=== PATIENT | female | born 1960 | race Caucasian/White ===

== ENCOUNTER 2025-10-14 08:41 | Outpatient (OUT) | payer SELFPAY ==
--- OUTSIDE RECORDS SUMMARY | 2025-10-05 11:00 | XMS_ITS | Encounter Summary ---
Author Organization [facility] Address [address] [place] [address] Care Team Providers Care Mineral Mixer Name Role Phone Mirian Putnam MD Primary Care Provider [phone] Reason for Visit * Consultation (Routine) - AuthorizedSpecialtyDiagnoses / ProceduresReferred By ContactReferred To ContactPhysical Therapy Diagnoses Acute pain of both shoulders Procedures RI OFFICE/OUTPATIENT [facility] MDM 60 MINUTES Jocy Roger NP [address] [place] [address] Phone: tel: fax: Joseline Justin PT Referral IDStatusReasonStart DateExpiration DateVisits RequestedVisits [id number] Consult and Treat Encounter Details DateTypeDepartmentCare Team (Latest Contact Info)Puptchszqxp58/04/2025 11:00 AM ESTTreatment [facility] [address] [place] [address] Stephania Casarez PTA Acute pain of both shoulders (Primary Dx) Social History Tobacco UseTypesPacks/DayYears UsedDateSmoking Tobacco: NeverSmokeless Tobacco: NeverAlcohol UseStandard Drinks/WeekCommentsNot Currently2 (1 standard drink = 0.6 oz pure alcohol)Caffeine intake: 1-2 cups per day coffee, [id number] Health LiteracyAnswerDate RecordedHow often do you need to have someone help you when you read instructions, pamphlets, or other written material from your doctor or pharmacy?Never08/13/2025Humiliation, Afraid, Rape, and Kick questionnaireAnswer Date RecordedWithin the last year, have you been afraid of your partner or ex-partner?No08/13/2025Within the last year, have you been humiliated or emotionally abused in other ways by your partner or ex-partner?No08/13/2025 Within the last year, have you been kicked, hit, slapped, or otherwise physically hurt by your partner or ex-partner?No08/13/2025Within the last year, have you been raped or forced to have any kind of sexual activity by your part ner or ex-partner?No08/13/2025Social Connection and Isolation PanelAnswerDate RecordedIn a typical week, how many times do you talk on the phone with family, friends, or neighbors?More than three times a week08/13/2025How often do you get together with friends or relatives?Twice a week08/13/2025How often do you attend christianity or gnosticist services?1 to 4 times per year08/13/2025Do you belong to any clubs or organizations such as christianity groups, unions, fraternal or athletic rick ups, or school groups?No08/13/2025How often do you attend meetings of the clubs or organizations you belong to?Patient zkudhgrt52/12/2025re you , , , , never , or living with a partner? 08/13/2025UDIT-CAnswerDate RecordedQ1: How often do you have a drink containing alcohol?2-4 times a month08/13/2025Q2: How many drinks containing alcohol do you have on a typical day when you are drinking?1 or Q3: How often do you have six or more drinks on one occasion?Less than zsjkudw1308/13/2025Overall Financial Resource Strain (CARDIA)AnswerDate RecordedHow hard is it for you to pay for the very basics like food, housing, medical care, and heating?Not hard at all08/13/2025PHQ-2AnswerDate RecordedPatient Health Questionnaire-2 Score0 08/27/2025[facility] [place] [facility] Occupational Health - Occupational Stress QuestionnaireAnswerDate RecordedDo you feel stress - tense, restless, nervous, or anxious, or unable to sleep at night because yourmind is troubled all the time - these days?Not at all08/13/2025Exercise Vital SignAnswerDate RecordedOn average, how many days per week do you engage in moderate to strenuous exercise (like a brisk walk)?2 days08/13/2025On average, how many minutes do you engage in exercise at this level?20 min08/13/2025Hunger Vital SignAnswerDate Recorded Within the past 12 months, you worried that your food would run out before you got the money to buymore.Never true08/13/2025Within the past 12 months, the food you bought just didn't last and you didn't have money to get more.Never true 08/13/2025PRAPARE - TransportationAnswerDate RecordedIn the past 12 months, has lack of transportation kept you from medical appointments or from getting medications?No08/13/2025In the past 12 months, has lack of transportation kept you from meetings, work, or from getting things needed for daily living?No 08/13/2025Housing Stability Vital SignAnswerDate RecordedIn the last 12 months, was there a time when you were not able to pay the mortgage or rent on time?No 08/13/2025In the past 12 months, how many times have you moved where you were living?t any time in the past 12 months, were you homeless or living in a custodial (including now)?No08/13/2025CommentsUnknownSex and Gender InformationValueDate RecordedSex Assigned at BirthNot on fileLegal SexFemale 02/13/2023 6:46 PM EDTGender IdentityNot on fileSexual OrientationNot on file documented as of this encounter Progress Notes * Stephania Casarez, EMPLOYMENT TRAINER - 10/05/2025 11:00 AM EST Images from the original note were not included. Physical Therapy Treatment Visit Patient Name: Leslye Majano Today's Date: 10/05/2025 Encounter Diagnoses Name Primary? Acute pain of both shoulders Yes Visit number: 13 Timed Code Treatment: 45 minutes Total Treatment Time: 60 minutes Time In: 1100 AM Time Out: 1200 PM History: Pt states a couple weeks ago she realized she could not lift either arm. States she was lifting some garage doors at that time which were heavy. States both arms were only raising to about 90 degrees. States she was seen by chiro for neck adjustments with no change in shoulder sx's. Precautions: [place] Subjective: Pt reports shoulder is getting better, but numbness remains in R hand. States continuesto be sore after each session d/t pushing herself. States was able to get a hold of ortho and doesn't see them till October 21. Pain: 01/11 Objective: PT Evaluation (08/11/2025) RIGHT SHOULDER AROM: 146 degrees flexion, 85 degrees abduction, full ER and IR Strength: grossly 4 to 4+/5 without pain with MMT in neutral; empty can 4-/5 due to pain Palpation: min to moderate tenderness biceps tendon and RC insertion Muscle length: rightness right UT Special Test: Pain with Neers at 80 degrees elevation, pain with Rubio Robinson; empty can negative, mild discomfort Speeds testing LEFT SHOULDER AROM: 136 degrees flexion, 80 degrees abduction, full ER and IR with pain at end range IR Strength: grossly 4 to 4+/5 without pain with MMT in neutral; empty can 3 to 3+/5 due to pain Palpation: moderate tenderness biceps tendon and RC insertions Special Test: Pain with Neers at 30 degrees elevation, positive Rubio Robinson; moderate pain withSpeeds testing Treatment: Manual Therapy: () Delivered manual ther to bilateral STM/MFR/TPR, stretching of upper traps, cervical distraction SOR to reduce tone and improve mobility PROM of bilateral shoulders Therapeutic Exercise: (45 minutes supervised) Guided pt through ther and flex ex per grid to improve bilateral shoulder UE functional mobility, strength and scapular stability within pain free ranges; Therapeutic Activity: Exercises to improve dynamic activities, functional tasks, functional mobility to return to prior activity level as needed. Neuromuscular re-education: Balance Training, Muscle Facilitation, Dynamic Stability, Core Stabilization, and Blood Flow Restriction Training (BFRT) as needed. Modalities: (15 minutes ) Post session HP / Premod to bilateral shoulder, pt seated to reduce muscle soreness Assessment: Visit #13: Patient presents with bilateral shoulder pain and weakness. MRI revealed a tear of the left rotator cuff muscle and tendonitis in the right shoulder. The session focused on strengthening and improving mobility of both shoulders within pain-free ranges. No adverse effects wereobserved during this visit. The session concluded with interferential current therapy. Outcome Measure: Upper Extremity Functional Index (UEFI): 61/80; 55/80 (09/13/25) Rehab Diagnosis: bilateral shoulder pain and weakness, decrease ROM and mobility Short Term Goal: To be met in 2 weeks Goal 1: Pt to be instructed in home exercise program. - Met Director [employer] Goals: To be met in 10 weeks Goal 1: Pt to report independence and compliance with home program. - Met/progressing Goal 2: Pt to achieve 120 degrees of bilateral shoulder abduction to assist with grooming hair. - Progressing Goal 3: Pt to achieve 4+ to 5/5 strength right shoulder in all planes to assist with functional tasks and lifting. - Progressing Goal 4: Pt to present with negative impingement signs bilateral shoulders indicating improved tissue quality and decrease pain. - - Progressing Goal 5: Pt to achieve 140 degrees of left shoulder flexion to assist with overhead reaching. - Progressing Goal 6: Pt to achieve 4+/5 strength left shoulder in all planes to assist with functional tasks andlifting. - Progressing Goal 7: Pt to score no less than 70/80 on UEFI indicating improved QOL. - Progressing Pt will benefit from skilled PT for 2x/week from 08/11/2025 to 11/03/2025 to address the above impairments. I hereby deem this POC medically necessary. Please sign below. Date: Cosigned by Joseline Justin PT at 10/08/2025 2:36 PM EST documented in this encounter Plan of Treatment DateTypeDepartmentCare Team (Latest Contact Info)Tsfswyaojtf33/14/2025 12:30 PM ESTTreatment [facility] [address] [place] [address] Gezo Stephania, EMPLOYMENT TRAINER 10/19/2025 11:00 AM ESTTreatment [facility] [address] [place] [address] Gezo, Stephania, EMPLOYMENT TRAINER 10/21/2025 11:00 AM ESTTreatment [facility] [address] [place] [address] Gezo Stephania, EMPLOYMENT TRAINER 11/30/2025 1:00 PM ESTOffice Visit [facility] [address] [place] [address] Jocy Roger NP [address] [place] [address] documented as of this encounter Visit Diagnoses Diagnosis Acute pain of both shoulders- Primary documented in this encounter Additional Health Concerns AssessmentNoted TimePHQ-9 Depression Total Score: 10:00 AM EDT documented as of this encounter Care Teams Team MemberRelationshipSpecialtyStart DateEnd Date Mirian Putnam MD [address] [place] [address] PCP - GeneralFamily Medicine04/09/23documented as of this encounter
--- OUTSIDE RECORDS SUMMARY | 2025-10-07 11:00 | XMS_ITS | Encounter Summary ---
Author Organization [facility] Address [address] [place] [address] Care Team Providers Care Community Health Director Name Role Phone Mirian Putnam MD Primary Care Provider [phone] Reason for Visit * Consultation (Routine) - AuthorizedSpecialtyDiagnoses / ProceduresReferred By ContactReferred To ContactPhysical Therapy Diagnoses Acute pain of both shoulders Procedures RI OFFICE/OUTPATIENT [facility] MDM 60 MINUTES Jocy Roger NP [address] [place] [address] Phone: tel: fax: Joseline Justin PT Referral IDStatusReasonStart DateExpiration DateVisits RequestedVisits [id number] Consult and Treat Encounter Details DateTypeDepartmentCare Team (Latest Contact Info)Yuxghhjsnjs39/06/2025 11:00 AM ESTTreatment [facility] [address] [place] [address] Stephania Casarez PTA Acute pain of both shoulders (Primary Dx) Social History Tobacco UseTypesPacks/DayYears UsedDateSmoking Tobacco: NeverSmokeless Tobacco: NeverAlcohol UseStandard Drinks/WeekCommentsNot Currently2 (1 standard drink = 0.6 oz pure alcohol)Caffeine intake: 1-2 cups per day coffee, [id number] Health LiteracyAnswerDate RecordedHow often do you need [...] relatives?Twice a week08/13/2025How often do you attend jewish or jain services?1 to 4 times per year08/13/2025Do you belong to any clubs or organizations such as jewish groups, unions, fraternal or athletic rick ups, or school groups?No08/13/2025How often do you attend meetings of the clubs or organizations you belong to?Patient muyldnvs46/12/2025re you , , , , never , or living with a partner? 08/13/2025UDIT-CAnswerDate RecordedQ1: How often do you have a drink containing alcohol?2-4 times a month08/13/2025Q2: How many drinks containing alcohol do you have on a typical day when you are drinking?1 or Q3: How often do you have six or more drinks on one occasion?Less than potbbde7608/13/2025Overall Financial Resource Strain (CARDIA)AnswerDate RecordedHow hard is it for you to pay for the very basics like food, housing, medical care, and heating?Not hard at all08/13/2025PHQ-2AnswerDate RecordedPatient Health Questionnaire-2 Score0 08/27/2025[facility] [place] of Occupational Health - Occupational Stress QuestionnaireAnswerDate [...] were you homeless or living in a retirement (including now)?No08/13/2025CommentsUnknownSex and Gender InformationValueDate RecordedSex Assigned at BirthNot on fileLegal SexFemale 02/13/2023 6:46 PM EDTGender IdentityNot on fileSexual OrientationNot on file documented as of this encounter Progress Notes * Stephania Casarez, DIGITAL HARDWARE DESIGN ENGINEER - 10/07/2025 11:00 AM EST Images from the original note were not included. Physical Therapy Treatment Visit Patient Name: Leslye Majano Today's Date: 10/07/2025 Encounter Diagnoses Name Primary? Acute pain of both shoulders Yes Visit number: 14 Timed Code Treatment: 45 minutes Total Treatment [...] with no change in shoulder sx's. Precautions: [place] Subjective: Pt reports no new changes since last session. continues to work on exercises at home until her appt the 21 of October. Pain: 01/11 Objective: PT Evaluation (08/11/2025) RIGHT [...] moderate pain withSpeeds testing Treatment: Manual Therapy: Delivered manual ther to bilateral STM/MFR/TPR, stretching of upper traps, cervicaldistraction SOR to reduce tone and improve mobility [...] seated to reduce muscle soreness Assessment: Visit #14: Patient presents with bilateral shoulder pain and weakness. MRI revealed a tear of the left rotator cuff muscle and tendonitis in the right shoulder. Continued focus on strength and active ROM to improve with functional activity. Min difficulty with ABD, due to weakness and pain. Pt would benefit from additional therapy to help gain improvements in strength and functional mobility. Outcome Measure: Upper Extremity Functional Index (UEFI): 61/80; 55/80 (09/13/25) Rehab Diagnosis: bilateral shoulder pain and weakness, decrease ROM and mobility Short Term Goal: To be met in 2 weeks Goal 1: Pt to be instructed in home exercise program. - Met Manager Of Data Goals: To be met in 10 weeks [...] Cosigned by Joseline Justin PT at 10/08/2025 2:27 PM EST documented in this encounter Plan of Treatment DateTypeDepartmentCare Team (Latest Contact Info)Vsxkkqalwur32/14/2025 12:30 PM ESTTreatment [facility] [address] [place] [address] Stephania Casarez, DIGITAL HARDWARE DESIGN ENGINEER 10/19/2025 11:00 AM ESTTreatment [facility] [address] [place] [address] GeStephania brice, DIGITAL HARDWARE DESIGN ENGINEER 10/21/2025 11:00 AM ESTTreatment [facility] [address] [place] [address] HenriqueStephania brice, DIGITAL HARDWARE DESIGN ENGINEER 11/30/2025 1:00 PM ESTOffice Visit [facility] [address] [facility] [place] [address] Jocy Roger NP [address] [place] [address] documented as of this encounter Visit Diagnoses Diagnosis Acute pain of both shoulders- Primary documented in this encounter Additional Health Concerns AssessmentNoted TimePHQ-9 Depression Total Score: 10:00 AM EDT documented as of this encounter Care Teams Team MemberRelationshipSpecialtyStart DateEnd Date Mirian Putnam MD [address] [facility] [place] [address] PCP - GeneralFamily Medicine04/09/23documented as of this encounter
--- NOTE | 2025-10-14 | XR_ITS ---
The [address] [address] Patient Name: MARVIN ISRAEL MRN: [id number] date: 1960 Sex: F Assigned Patient Location: [facility] Current Patient Location: [facility] Accession/Order Number: [id number] Exam Date: 10/14/2025 10:55 Report Date: 10/14/2025 11:16 At the request of: DARIANA JAVIER DO Procedure: XR shoulder ARTURO min 2V BILATERAL SHOULDERS - 4 views each COMPARISON: None CLINICAL DATA: Bilateral shoulder pain for the past couple months with decreased range of motion on the left and numbness at the hand on the right. No injury. AP, Y, axillary and Grashey views were obtained. There are no acute fractures or dislocation. Mild hypertrophy is noted at both acromioclavicular joints. There is also asymmetric spurring along the undersurface of the acromion on the left which could predispose to impingement. No significant soft tissue abnormalities are seen. XR/XR shoulder ARTURO min 2V IMPRESSION: DEGENERATIVE CHANGES, DESCRIBED. Impression dictated by: Agustina Deutsch M.D. 10/14/2025 11:16 AM Dictation Location: [place] [address] Electronically authenticated by: [id number] Y Date: 10/14/2025 11:16
--- OUTSIDE RECORDS SUMMARY | 2025-10-14 08:43 | XMS_ITS | Clinical Summary ---
Author Organization [facility] Healthcare Address [address] [place] [address] Care Team Providers Care Voice Engineer Name Role Phone Mirian Putnam MD Primary Care Provider [phone] Allergies Active AllergyReactionsCriticalityNoted DateCommentsPenicillin GUnknown 07/11/2023 Medications MedicationSigDispense QuantityRefillsLast FilledStart DateEnd DateStatus Coenzyme Q10 (COQ-10 PO) CoQ-10Active ibuprofen 200 MG tablet Take 200 mg by mouth every 6 (six) hours.Active omega-3 (fish oil) 1000 MG capsule Take by mouth.Active magnesium 30 MG tablet Take 30 mg by mouth in the morning and 30 mg before bedtime.Active albuterol HFA 90 mcg/act inhaler Indications:Walking pneumoniaInhale 2 puffs every 4 (four) hours if needed for wheezing 18 g 4Active valsartan (Diovan) 320 MG tablet Indications:Essential (primary) hypertensionTAKE 1 TABLET BY MOUTH EVERY DAY 90 tablet 5Active carvedilol CR (Coreg CR) 40 MG 24 hr capsule Indications:Primary hypertensionTAKE 1 CAPSULE BY MOUTH EVERY DAY IN THE MORNING 90 capsule 5Active cyclobenzaprine (Flexeril) 10 MG tablet Indications:Acute pain of both shouldersTake 1 tablet (10 mg) by mouth 3 (three) times a day as needed for muscle spasms for up to 5 days 15 tablet 5Active empagliflozin (Jardiance) 10 MG Indications:Type 2 diabetes mellitus with other specified complication, without long-term current use of insulin (HCC)Take 1 tablet (10 mg) by mouth Daily 90 tablet 5Active amLODIPine (Norvasc) 5 MG tablet Indications:Primary hypertensionTake 1 tablet (5 mg) by mouth Daily 90 tablet 5Active buPROPion XL (Wellbutrin XL) 150 MG 24 hr tablet Indications:Essential hypertensionTAKE 1 TABLET (150 MG) BY MOUTH IN THE MORNING. DO NOT CRUSH, CHEW, OR SPLIT.. 90 tablet 5Active Active Problems ProblemNoted DateDiagnosed DateEssential ecvlwnxmvrwo85/10/2023Fatty liver 07/11/2023astroesophageal reflux mikhccq2507/11/20233539Ywinsjmwdlmxwr61/10/2023 Parathyroid uhanwpkcbgy36/10/2023 Resolved Problems ProblemNoted DateDiagnosed DateResolved XgcjKwkwhqdqcd54/10/202308/Loss of sense of smellSerum calcium nprygksa63 Encounters DateTypeDepartmentCare QheiHclaohmasfy40/06/2025 11:00 AM ESTTreatment [facility] [address] [facility] [address] [place] [address] Stephania Casarez, VIBRATOR EQUIPMENT TESTER Acute pain of both shoulders (Primary Dx)10/07/2025amboo flowsheet [facility] [address] [facility] [address] [place] [address] HenriquezoStephania, VIBRATOR EQUIPMENT TESTER 10/07/20252890Puqlen32/04/2025 11:00 AM ESTTreatment [facility] [address] [facility] [address] [place] [address] GezoStephania, VIBRATOR EQUIPMENT TESTER Acute pain of both shoulders (Primary Dx)10/05/2025amboo flowsheet [facility] [address] [facility] [address] [place] [address] GezoStephania, VIBRATOR EQUIPMENT TESTER 10/05/20255165Rvhejs02/28/2025 11:00 AM EDTTreatment [facility] [address] [facility] [address] [place] [address] Dionicio Rosario, VIBRATOR EQUIPMENT TESTER Acute pain of both shoulders (Primary Dx)09/28/2025amboo flowsheet [facility] [address] [facility] [address] [place] [address] Dionicio Rosario, VIBRATOR EQUIPMENT TESTER 09/28/20257796Ahbyub34/24/2025 10:30 AM EDTClinical Support [facility] Patient Education [address] [facility] [place] [address] Zeus Mena RN Type 2 diabetes mellitus with other specified complication, without long-term current use of insulin (HCC) (Primary Dx); Essential dbenoetgqrui26/23/2025 1:00 PM EDTTreatment [facility] [address] [facility] [address] [place] [address] Livia Bowling, VIBRATOR EQUIPMENT TESTER Acute pain of both shoulders (Primary Dx)09/23/2025amboo flowsheet [facility] [address] [facility] [address] [place] [address] Livia Bowling, VIBRATOR EQUIPMENT TESTER 09/23/20258080Cydrkm31/22/2025Telephone [facility] Medicine [address] [facility] [place] [address] Mirian Putnam MD 09/21/2025 11:00 AM EDTTreatment [facility] [address] [facility] [address] [place] [address] Joseline Justin, PT Acute pain of both shoulders (Primary Dx)09/21/2025amboo flowsheet [facility] [address] [facility] [address] [place] [address] Joseline Justin, PT 09/21/20257183Guggyr49/17/2025Results Follow-Up [facility] [address] [facility] [place] [address] Jocy Roger, MARIELA MR shoulder left wo IV ljjaecpi86/16/2025 2:15 PM EDTAncillary Procedure [facility] [address] [place] [phone] Acute pain of left eyuqerts12/16/2025 1:30 PM EDTAncillary Procedure [facility] [address] [place] [address] Acute pain of right krzpuqyr96/16/9247Litgvv87/13/2025 2:00 PM EDTTreatment [facility] [address] [place] [address] Joseline Justin, PT Acute pain of both shoulders (Primary Dx)09/13/2025amboo flowsheet [facility] [address] [place] [address] Joseline Justin, PT 09/13/20250303Btkcdi24/10/2025 2:00 PM EDTTreatment [facility] [address] [place] [address] Livia Bowling, VIBRATOR EQUIPMENT TESTER Acute pain of both shoulders (Primary Dx)09/10/2025amboo flowsheet [facility] [address] [place] [address] Livia Bowling, VIBRATOR EQUIPMENT TESTER 09/10/20250646Jmcjej10/08/2025 1:00 PM EDTTreatment [facility] [address] [place] [address] Dionicio Rosario, VIBRATOR EQUIPMENT TESTER Acute pain of both shoulders (Primary Dx)09/08/20258087Oyhary94/06/2025Telephone [facility] [address] [place] [address] Niki Roland MA 09/03/2025 12:30 PM EDTTreatment [facility] [address] [place] [address] Livia Bowling, VIBRATOR EQUIPMENT TESTER Acute pain of both shoulders (Primary Dx)09/03/20259108Umknxz38/03/2025Refill [facility] [address] [facility] [place] [address] Mirian Putnam MD Essential /29/2025 10:30 AM EDTTreatment [facility] [address] [facility] [address] [place] [address] Dionicio Rosario, VIBRATOR EQUIPMENT TESTER Acute pain of both shoulders (Primary Dx)08/30/2025amboo flowsheet [facility] [address] [facility] [address] [place] [address] Dionicio Rosario, VIBRATOR EQUIPMENT TESTER 08/30/20255186Kvjbsg00/26/2025 11:30 AM EDTOffice Visit [facility] [address] [facility] [place] [address] Jocy Roger NP Type 2 diabetes mellitus with other specified complication, without long-term current use of insulin (HCC) (Primary Dx); Primary hypertension ; Spasm of both trapezius muscles; Acute pain of both shoulders; Major depressive disorder, recurrent, mild08/27/2025amb flowsheet [facility] [address] [facility] [place] [address] Jocy Roger NP 08/27/20250302Ctduqd89/22/2025 2:30 PM EDTTreatment [facility] [address] [facility] [address] [place] [address] Livia Bowling, VIBRATOR EQUIPMENT TESTER Acute pain of both shoulders (Primary Dx)08/23/2025amboo flowsheet [facility] [address] [place] [address] Livia Bowling, VIBRATOR EQUIPMENT TESTER 08/23/20254548Bhmgru40/18/2025 2:30 PM EDTTreatment [facility] [address] [facility] [address] [place] [address] Livia Bowling, VIBRATOR EQUIPMENT TESTER Acute pain of both shoulders (Primary Dx)08/19/2025amboo flowsheet [facility] [address] [place] [address] Livia Bowling, VIBRATOR EQUIPMENT TESTER 08/19/20251622Iejhmn85/15/2025 2:30 PM EDTTreatment [facility] [address] [place] [address] Dionicio Rosario, VIBRATOR EQUIPMENT TESTER Acute pain of both shoulders (Primary Dx)08/16/2025amboo flowsheet [facility] [address] [facility] [address] [place] [address] Dionicio Rosario, VIBRATOR EQUIPMENT TESTER 08/16/20257989Tbqgev50/12/2025 10:30 AM EDTClinical Support [facility] [address] [place] [address] Zeus Mena RN Type 2 diabetes mellitus with other specified complication, without long-term current use of insulin (HCC) (Primary Dx); Mixed ubobrqddkuylvx06/12/2025amboo flowsheet [facility] Education [address] [place] [address] Zeus Mena RN 08/11/2025 1:00 PM EDTEvaluation [facility] [address] [facility] [address] [place] [address] Joseline Justin, PT Acute pain of both shoulders (Primary Dx)08/11/2025Plan of Care Documentation [facility] [address] [facility] [address] [place] [address] 08/11/2025amboo flowsheet [facility] [address] [place] [address] Joseline Justin, PT 08/11/20259023Hxiupa52/27/2025 1:30 PM EDTOffice Visit [facility] [address] [place] [address] Jocy Roger NP Acute pain of both shoulders (Primary Dx); Essential hypertension ; Spasm of both trapezius muscles; Type 2 diabetes mellitus with other specified complication, without long-term current use of insulin (HCC)07/28/2025amboo flowsheet [facility] [address] [place] [address] Jocy Roger NP 07/28/2025Travelfrom Last 3 Months Family History Medical HistoryRelationNameCommentsDiabetesFatherHeart diseaseFatherHypertension FatherCancerMotherHypertensionMotherUterine cancerMotherRelationNameStatus SemuyxqwZtunhqbGohffVqjwniboXmstiMsmjuxFwlmfAufamkXttmoFyuwwwq1Jxr 1AliveSon 2 Social History Tobacco UseTypesPacks/DayYears UsedDateSmoking Tobacco: NeverSmokeless Tobacco: Never Tobacco Cessation:Counseling Given: Not Answered Alcohol UseStandard Drinks/WeekCommentsNot Currently2 (1 standard drink = 0.6 oz pure alcohol)Caffeine intake: 1-2 cups per day coffee, hipG1434 Health Literacy AnswerDate RecordedHow often do you need to have someone help you when you read instructions, pamphlets, or other written material from your doctor or pharmacy? Never08/13/2025Humiliation, Afraid, Rape, and Kick questionnaireAnswerDate RecordedWithin the last year, have you been [...] relatives?Twice a week08/13/2025How often do you attend orthodoxy or gnosticism services?1 to 4 times per year08/13/2025Do you belong to any clubs or organizations such as orthodoxy groups, unions, fraternal or athletic rick ups, or school groups?No08/13/2025How often do you attend meetings of the clubs or organizations you belong to?Patient /12/2025re you , , , , never , or living with a partner? 08/13/2025UDIT-CAnswerDate RecordedQ1: How often do you have a drink containing alcohol?2-4 times a month08/13/2025Q2: How many drinks containing alcohol do you have on a typical day when you are drinking?1 or Q3: How often do you have six or more drinks on one occasion?Less than ozsmrkz9208/13/2025Overall Financial Resource Strain (CARDIA)AnswerDate RecordedHow hard is it for you to pay for the very basics like food, housing, medical care, and heating?Not hard at all08/13/2025PHQ-2AnswerDate RecordedPatient Health Questionnaire-2 Score0 08/27/2025Fin[facility] Occupational Health - Occupational Stress QuestionnaireAnswerDate [...] were you homeless or living in a senior living (including now)?No08/13/2025CommentsUnknownSex and Gender InformationValueDate RecordedSex Assigned at BirthNot on fileLegal SexFemale 02/13/2023 6:46 PM EDTGender IdentityNot on fileSexual OrientationNot on file Last Filed Vital Signs Vital SignReadingTime TakenCommentsBlood Mpiianqv728/9608/27/2025 11:23 AM EDT Wxbgw087108/27/2025 11:23 AM IUMSkjqxtalixl64.3 ??C (97.3 ??F)05/27/2025 9:57 AM EDTRespiratory Jfks288012/12/2023 12:00 PM ESTOxygen Bikrnsgzpj26%08/27/2025 11:23 AM EDTInhaled Oxygen Concentration--Gavufz50.8 kg (173 lb 12.8 oz)08/27/2025 11:23 AM ZYVBwmssc943.6 cm (5' 4 )05/27/2025 9:57 AM EDTBody Mass Index29.83 05/27/2025 9:57 AM EDT Plan of Treatment DateTypeDepartmentCare Team (Latest Contact Info)Ztniwnbjcoq56/14/2025 12:30 PM ESTTreatment [facility] [address] [facility] [address] [place] [address] Stephania Casarez, ROBERTA 10/19/2025 11:00 AM ESTTreatment [facility] [address] [facility] [address] [place] [address] Stephania Casarez, VIBRATOR EQUIPMENT TESTER 10/21/2025 11:00 AM ESTTreatment [facility] [address] [place] [address] Leida Stephania, VIBRATOR EQUIPMENT TESTER 11/30/2025 1:00 PM ESTOffice Visit [facility] [address] [facility] [address] Jocy Roger, JUSTICE COURT DEPUTY CLERK [address] [place], [place] [id number] Health MaintenanceDue DateLast DoneCommentsCT Ndmdorxhgjcm1960Colonoscopy 1960FIT1960FOBT1960 1326Ocidsvmcknhvo1960Pneumococcal Vaccine: 65+ Years (1 of 2 - PCV)1979Pap SmearCOVID-19 Vaccine ( - season)2025Diabetes: Retinopathy Minfuwgrz27/17/2025 3Diabetes: Hemoglobin A1C509/, 05/27/2025, 02/18/2025, Additional history ythbyuItiuraocd53/10/202604/09/2025, 09/11/2023, 09/05/2022, Additional history existsInfluenza Vaccine (#1)05/31/2026Postponed from 08/02/2025 (Patient Refused)Colorectal Cancer Pvizqbmzj14/27/2026FIT-DNA /3Diabetes: Urine Protein Rbhxmyxbl96/05/2025 Cervical Cancer Zcotyurus57/27/2029HPV/Mmjdij50 Procedures Procedure NamePriorityDate/TimeAssociated DiagnosisCommentsMR SHOULDER LEFT WO IV YCFYAYZDTmjnwtq29/16/2025 2:30 PM EDT Acute pain of left shoulder MR SHOULDER RIGHT WO IV QMKYRMLDLsyqfbo63/16/2025 1:50 PM EDT Acute pain of right shoulder MICROALBUMIN / CREATININE URINE ZICRIWsnokqo97/06/2025 1:14 PM EDT Type 2 diabetes mellitus without complication, without long-term current use of insulin (HCC) POCT GLYCATED HEMOGLOBIN, AVMOERfdhydb72/26/2025 11:37 AM EDT Type 2 diabetes mellitus with other specified complication, without long-term current use of insulin (HCC) BI MAMMOGRAM SCREENING TOMOSYNTHESIS TJPCCEUFCJlmgyqx84/10/2025 12:34 PM EDT Screening mammogram for breast cancer THINPREP IMAGING PAP W/REFL HPV MRNA E6/L3Sqzdefg82/27/2024 2:24 PM EDT Screening for malignant neoplasm of cervix DIABETIC RETINOPATHY SCREENING - OU - BOTH HFMSHoktuaj46/17/2023 2:36 PM EDTLAB COLOGUARD?? COLON CANCER YMZIXSJeinhrp16/27/2023 9:00 AM EDT Screening for colorectal cancer from Last 3 Months or Most Recently Relevant to Health Maintenance Results * MR shoulder left wo IV contrast (09/16/2025 2:30 PM EDT)Anatomical Region LateralityModalityUpper Extremities, ShoulderLeftMagnetic ResonanceSpecimen (Source)Anatomical Location / LateralityCollection Method / VolumeCollection TimeReceived Time09/17/2025 1:51 PM EDT Impressions 09/17/2025 2:22 PM EDT Complex tearing of the supraspinatus. Tiny low-grade intrasubstance tear along the myotendinous junction of infraspinatus. Mild glenohumeral osteoarthritis. ELECTRONICALLY SIGNED BY: DO Cindy Barlow 09/17/2025 2:22 PM EDT EXAM: MR SHOULDER LEFT WO IV CONTRAST HISTORY: Shoulder pain and limited range of motion. TECHNIQUE: Multiplanar multisequence MRI of the ??shoulder was performed Without contrast. COMPARISON: ??None available. FINDINGS: Moderate degenerative changes of the acromioclavicular joint with small undersurface osteophyte formation. Slight lateral downsloping of the acromion. The acromion is curved. Coracoclavicular ligament intact. Small amount of subacromial/subdeltoid bursal fluid. Complex intrasubstance tearing of supraspinatus tendon and along the myotendinous junction of supraspinatus centered at the level of the mid humeral head with tiny full-thickness component of anterior fibers at the level of the mid humeral head. Tiny low-grade intrasubstance tear along the myotendinous junction of infraspinatus. Subscapularis and teres minor tendons are intact. No atrophy or fatty infiltration of the rotator cuff musculature. The intra-articular and extra-articular long head biceps tendon is intact. The biceps tendon resides within the bicipital groove. No labral tear identified. Partial-thickness cartilage loss of the humeral head and glenoid withoutwell-defined or measurable cartilage defect. No ??glenohumeral joint effusion . Procedure Note Anand Aj, DO - 09/17/2025 EXAM: MR SHOULDER LEFT WO IV CONTRAST HISTORY: Shoulder pain and limited range of motion. TECHNIQUE: Multiplanar multisequence MRI of the shoulder was performedWithout contrast. COMPARISON: None available. FINDINGS: Moderate degenerative changes of the acromioclavicular joint with small undersurface osteophyte formation. Slight lateral downsloping of theacromion. The acromion is curved. Coracoclavicular ligament intact. Smallamount of subacromial/subdeltoid bursal fluid. Complex intrasubstance tearing of supraspinatus tendon and along themyotendinous junction of supraspinatus centered at the level of the midhumeral head with tiny full-thickness component of anterior fibers at thelevel of the mid humeral head. Tiny low-grade intrasubstance tear alongthe myotendinous junction of infraspinatus. Subscapularis and teres minortendons are intact. No atrophy or fatty infiltration of the rotator cuffmusculature. The intra-articular and extra-articular long head biceps tendon is intact.The biceps tendon resides within the bicipital groove. No labral tear identified. Partial-thickness cartilage loss of the humeralhead and glenoid without well-defined or measurable cartilage defect. No glenohumeral joint effusion . IMPRESSION: Complex tearing of the supraspinatus. Tiny low-grade intrasubstance tear along the myotendinous junction of infraspinatus. Mild glenohumeral osteoarthritis. ELECTRONICALLY SIGNED BY: Anand Aj DO Authorizing ProviderResult TypeResult StatusSatina Roger NPIMG MRI PROCEDURES Final Result * MR shoulder right wo IV contrast (09/16/2025 1:50 PM EDT)Anatomical Region LateralityModalityUpper Extremities, ShoulderRightMagnetic ResonanceSpecimen (Source)Anatomical Location / LateralityCollection Method / VolumeCollection TimeReceived Time09/17/2025 1:05 PM EDT Impressions 09/17/2025 1:48 PM EDT Tiny low-grade intrasubstance tear of subscapularis tendon superimposed on mild tendinosis. Moderate infraspinatus and mild supraspinatus tendinosis. Mild long head biceps tendinosis. ELECTRONICALLY SIGNED BY: Anand Aj DO Narrative 09/17/2025 1:48 PM EDT EXAM: MR SHOULDER RIGHT WO IV CONTRAST HISTORY: Pain and limited range of motion TECHNIQUE: Multiplanar multisequence MRI of the ??shoulder was performed Without contrast. COMPARISON: ??None available. FINDINGS: Mild degenerative changes of the acromioclavicular joint with small undersurface osteophyte formation. Lateral downsloping of the acromion. The acromion is curved. Coracoclavicular ligament intact. Small subacromial/subdeltoid bursal fluid. Moderate infraspinatus tendinosis. Mild supraspinatus tendinosis. Tiny low-grade intrasubstance tear of distal superior and mid fibers of subscapularis superimposed on mild tendinosis. Teres minor tendon is intact. No atrophy or fatty infiltration of the rotator cuff musculature. Mild intra-articular long head biceps tendinosis. The biceps tendon resides within the bicipital groove. No labral tear identified. No well-defined or measurable cartilage defect. Small glenohumeral joint effusion . Procedure Note Anand Aj DO - 09/17/2025 EXAM: MR SHOULDER RIGHT WO IV CONTRAST HISTORY: Pain and limited range of motion TECHNIQUE: Multiplanar multisequence MRI of the shoulder was performedWithout contrast. COMPARISON: None available. FINDINGS: Mild degenerative changes of the acromioclavicular joint with smallundersurface osteophyte formation. Lateral downsloping of the acromion.The acromion is curved. Coracoclavicular ligament intact. Smallsubacromial/subdeltoid bursal fluid. Moderate infraspinatus tendinosis. Mild supraspinatus tendinosis. Tinylow-grade intrasubstance tear of distal superior and mid fibers ofsubscapularis superimposed on mild tendinosis. Teres minor tendon isintact. No atrophy or fatty infiltration of the rotator cuffmusculature. Mild intra-articular long head biceps tendinosis. The biceps tendonresides within the bicipital groove. No labral tear identified. No well-defined or measurable cartilagedefect. Small glenohumeral joint effusion . IMPRESSION: Tiny low-grade intrasubstance tear of subscapularis tendon superimposed onmild tendinosis. Moderate infraspinatus and mild supraspinatus tendinosis. Mild long head biceps tendinosis. ELECTRONICALLY SIGNED BY: Anand Aj DO Authorizing ProviderResult TypeResult StatusSahenry county hospital MagoColor[facility] MRI PROCEDURES Final Result * Microalbumin / creatinine urine ratio (09/06/2025 1:14 PM EDT)ComponentValue Ref RangeTest MethodAnalysis TimePerformed AtPathologist SignatureCREATININE, RANDOM [id number] - 275 mg/dLQUESTALBUMIN, URINE2.0See Note: mg/dLQUEST Comment: Reference Range: Reference Range Not established ALBUMIN/CREATININE RATIO, RANDOM URINE14<30 mg/g creatQUESTComment: The ADA defines abnormalities in albumin excretion as follows: Albuminuria Category ?Result (mg/g creatinine) Normal to Mildly increased <30 Moderately increased ? 30-299 Severely increased > OR = 300 The ADA recommends that at least two of three specimens collected within a 3-6 month period be abnormal before considering a patient to be within a diagnostic category. Specimen (Source)Anatomical Location / LateralityCollection Method / Volume Collection TimeReceived TimeUrineUrine specimen obtained by clean catch procedure / Qnjhgnp75/05/2025 1:14 PM EDT1 1:14 PM EDT Narrative Resulting Agency Comment Performing Organization Information ?Site ID: [id number] ?Name: [facility]en [facility] ?Address: [facility] , [address] [place] [id number] ?Director: Mark Sales MD Authorizing ProviderResult TypeResult StatusPatricia Alisa Mcbride NPLAB URINE ORDERABLESFinal ResultPerforming OrganizationAddressCity/State/ZIP CodePhone Number QUEST * POCT glycated hemoglobin, total docked device (08/27/2025 11:37 AM EDT) ComponentValueRef RangeTest MethodAnalysis TimePerformed AtPathologist SignatureHemoglobin A1C7.3Specimen (Source)Anatomical Location / Laterality Collection Method / VolumeCollection TimeReceived BletSopzrnsms70/26/2025 11:37 AM EDT Narrative Authorizing ProviderResult TypeResult StatusSagamal Roger NPPOINT OF CARE TEST ENTER/EDIT ORDERABLESFinal Result * Bilateral screening mammogram with tomosynthesis (03/11/2025 12:34 PM EDT) Anatomical RegionLateralityModalityBreastBilateralMammographySpecimen (Source) Anatomical Location / LateralityCollection Method / VolumeCollection Time Received Time03/11/2025 1:23 PM EDT Impressions 03/11/2025 1:29 PM EDT Impression: No specific evidence of malignancy seen in either breast. BIRADS 2 - Benign Findings DENSITY: There are scattered areas of fibroglandular density. FOLLOW-UP: Routine Screening Mammogram ELECTRONICALLY SIGNED BY: Sumanth José M.D. Narrative 03/11/2025 1:29 PM EDT Examination: BI MAMMOGRAM SCREENING TOMOSYNTHESIS BILATERAL Clinical History: screening Technique: Screening digital mammography study of both breasts was performed with 2-D and 3-D tomosynthesis imaging. Study was compared to the prior exam dated 09/11/2023. Findings: There is no evidence of interval dominant spiculated mass, grouped microcalcifications, or skin thickening which would be suggestive of malignancy. ?? A few benign-appearing calcifications are seen bilaterally. Procedure Note Sumanth José MD - 03/11/2025 Examination: BI MAMMOGRAM SCREENING TOMOSYNTHESIS BILATERAL Clinical History: screening Technique: Screening digital mammography study of both breasts wasperformed with 2-D and 3-D tomosynthesis imaging. Study was compared tothe prior exam dated 09/11/2023. Findings: There is no evidence of interval dominant spiculated mass,grouped microcalcifications, or skin thickening which would be suggestiveof malignancy. A few benign-appearing calcifications are seen bilaterally. IMPRESSION: Impression: No specific evidence of malignancy seen in either breast. BIRADS 2 - Benign Findings DENSITY: There are scattered areas of fibroglandular density. FOLLOW-UP: Routine Screening Mammogram ELECTRONICALLY SIGNED BY: Sumanth José M.D. Authorizing ProviderResult TypeResult StatusPaModoc Medical Center NPNEWMAN [facility] BI PROCEDURESFinal Result * THINPREP IMAGING PAP W/REFL HPV MRNA E6/E7 (02/26/2024 2:24 PM EDT)Component ValueRef RangeTest MethodAnalysis TimePerformed AtPathologist Signature CLINICAL INFORMATIONQUESTComment:None givenLMPQUESTComment:MENOPAUSEPREV. PAP QUESTComment:NONE GIVENPREV. BXQUESTComment:NONE GIVENSOURCEQUESTComment:None givenSTATEMENT OF ADEQUACYQUESTComment:SATISFACTORY FOR EVALUATION INTERPRETATION/RESULTQUESTComment: Cytology Results: Negative for intraepithelial lesion or malignancy. Atrophic pattern; predominantly parabasal cells COMMENTQUESTComment: This Pap test has been evaluated with computer assisted technology. Parabasal cells in smears that lack maturation due to atrophy or other hormonal reasons cannot be differentiated from transformation zone cells. Accordingly, presence or absence of endocervical or transformation zone components cannot be reported in this patient. CYTOTECHNOLOGISTQUESTComment: [facility], CT(ASCP) CT Screening Location: Seen [address] ??[address] (ALWAYS MESSAGE)QUESTComment: EXPLANATORY NOTE: The Pap is a screening test for cervical cancer. It is not a diagnostic test and is subject to false negative and false positive results. It is most reliable when a satisfactory sample, regularly obtained, is submitted with relevant clinical findings and history, and when the Pap result is evaluated along with historic and current clinical information. Specimen (Source)Anatomical Location / LateralityCollection Method / Volume Collection TimeReceived TimeSwabCervix uteri structure / Jdiqfbg3002/26/2024 2:24 PM EDT02/27/2024 2:45 AM EDT Narrative Resulting Agency Comment Performing Organization Information ?Site ID: [id number] ?Name: Seen [facility] ?Address: [address] [place] [address], [address] [place] [id number] ?Director: Mark Sales MD Authorizing ProviderResult TypeResult StatusKatrasheeda Fortune DOLAB CYTOLOGY ORDERABLESFinal ResultPerforming OrganizationAddressCity/State/ZIP CodePhone Number QUEST * Diabetic Retinopathy Screening - OU - Both Eyes (09/17/2023 2:36 PM EDT) Anatomical RegionLateralityModalityHeadOther Narrative Authorizing ProviderResult TypeResult StatusMirian Putnam MDOPHTH PHOTOGRAPHY Final Result * Cologuard?? colon cancer screening (07/28/2023 9:00 AM EDT)ComponentValueRef RangeTest MethodAnalysis TimePerformed AtPathologist SignatureNONINV COLON CA DNA+OCC BLD SCRN STL-NHYAjxxarfeMtnnzlty12/05/2023 10:03 AM EDTEXLealta Media (CLIA #:[id number])Comment: NEGATIVE TEST RESULT. A negative Cologuard result indicates a low likelihood that a colorectal cancer (CRC) or advanced adenoma (adenomatous polyps with more advanced pre-malignant features) ??is present. The chance that a person with a negative Cologuard test has a colorectal cancer is less than 1in 1500 (negative predictive value >99.9%) or has an advanced adenoma is less than 5.3% (negative predictive value 94.7%). These data are based on a prospective cross-sectional study of 10,000individuals at average risk for colorectal cancer who were screened with both Cologuard and colonoscopy. (Praveen Arroyo al, N Engl J Med 2014;370(14):6623-8134) The normal value (reference range) for this assay is negative. COLOGUARD RE-SCREENING RECOMMENDATION: Periodic colorectal cancer screening is an important part ofpreventive healthcare for asymptomatic individuals at average risk for colorectal cancer. ??Following a negative Cologuard result, the [place] Cancer Society and U.S. Multi-Society Task Force screening guidelines recommend a Cologuard re-screening interval of 3 years. References: [place] [employer] Society Guideline for Colorectal Cancer Screening: https://www.cancer.or g/cancer/emujl-ambjmm-yhjpil/jscwzkzhm-wrwlziaef-uvlqmrc/acs-recommendations.htm javier; Radames PRYOR, Ana CAMPOS, Kamlesh QUINONEZ, Colorectal Cancer Screening: Recommendations for Physicians and Patients from the U.S. Multi-Society Task Force on Colorectal Cancer Screening , Am J Gastroenterology 2017; 112:5086-6284. TEST DESCRIPTION: Composite algorithmic analysis of stool DNA-biomarkers with hemoglobin immunoassay. ?? Quantitative values of individual biomarkers are not reportable and are not associated with individual biomarker result reference ranges. Cologuard is intended for colorectal cancer screening ofadults of either sex, 45 years or older, who are at average-risk for colorectal cancer (CRC). Cologuard has been approved for use by the U.S. FDA. The performance of Cologuard was established in a cross sectional study of average-risk adults aged 50-84. Cologuard performance in patients ages 45 to 49 years was estimated by sub-group analysis of near-age groups. Colonoscopies performed for a positive result may find as the most clinically significant lesion: colorectal cancer [4.0%], advanced adenoma (including sessile serrated polyps greater than or equal to 1cm diameter) [20%] or non- advanced adenoma [31%]; or no colorectal neoplasia [45%]. These estimates are derived from a prospective cross-sectional screening study of 10,000 individuals at average risk for colorectal cancer who were screened with both Cologuard and colonoscopy. (Praveen Arroyo al, N Engl J Med 2014;370(14):6212-5239.) Cologuard may produce a false negative or false positive result (no colorectal cancer or precancerous polyp present at colonoscopy follow up). A negative Cologuard test result does not guarantee the absence of CRC or advanced adenoma (pre-cancer). The current Cologuard screening interval is every 3 years. ([place] Cancer Society and U.S. Multi-Society Task Force). Cologuard performance data in a 10,000 patient pivotal study using colonoscopy as the reference method can be accessed at the following location: www.exactRIGIDs.com/results. Additional description of the Cologuard test process, warnings and precautions can be found at www.cologuard.com. Specimen (Source)Anatomical Location / LateralityCollection Method / Volume Collection TimeReceived TimeStool specimen (specimen)07/28/2023 9:00 AM EDT 07/30/2023 11:14 PM EDT Narrative Authorizing ProviderResult TypeResult StatusPamercy health west hospital Alisa Mcbride LAB MOLECULAR DIAGNOSTICS ORDERABLESFinal ResultPerforming OrganizationAddress City/State/ZIP CodePhone Number .[facility] (CLIA #:[id number]) [address] [address] [phone] [facility] (CLIA #:[id number]) [address] [address] from Last 3 Months or Most Recently Relevant to Health Maintenance Insurance Care Teams Team MemberRelationshipSpecialtyStart DateEnd Mirian Putnam MD [address] [place] [address] PCP [facility]04/09/23
--- OUTSIDE RECORDS SUMMARY | 2025-10-14 08:43 | XMS_ITS | Encounter Summary ---
Author Organization [facility] Address [address] [place] [address] Care Team Providers Care Plant Tech Name Role Phone Mirian Putnam MD Primary Care Provider [phone] Encounter Details DateTypeDepartmentCare Team (Latest Contact Info)Ywwqfgvqkia35/04/2025Bamboo flowsheet [facility] [address] [place] [id number] Stephania Casarez PTA Social History Tobacco UseTypesPacks/DayYears UsedDateSmoking Tobacco: NeverSmokeless Tobacco: NeverAlcohol UseStandard Drinks/WeekCommentsNot Currently2 (1 standard drink = 0.6 oz pure alcohol)Caffeine intake: 1-2 cups per day coffee, [id number] Health LiteracyAnswerDate RecordedHow often do you need [...] relatives?Twice a week08/13/2025How often do you attend mandaeism or anglican services?1 to 4 times per year08/13/2025Do you belong to any clubs or organizations such as mandaeism groups, unions, fraNovatek or athletic rick ups, or school groups?No08/13/2025How often do you attend meetings of the clubs or organizations you belong to?Patient qdclfyse31/12/2025re you , , , , never , or living with a partner? 08/13/2025UDIT-CAnswerDate RecordedQ1: How often do you have a drink containing alcohol?2-4 times a month08/13/2025Q2: How many drinks containing alcohol do you have on a typical day when you are drinking?1 or Q3: How often do you have six or more drinks on one occasion?Less than asbfoma9808/13/2025Overall Financial Resource Strain (CARDIA)AnswerDate RecordedHow hard is it for you to pay for the very basics like food, housing, medical care, and heating?Not hard at all08/13/2025PHQ-2AnswerDate RecordedPatient Health Questionnaire-2 Score0 08/27/2025[facility] [place] [facility] Occup[facility] Health - Occupational Stress QuestionnaireAnswerDate [...] were you homeless or living in a detention (including now)?No08/13/2025CommentsUnknownSex and Gender InformationValueDate RecordedSex Assigned at BirthNot on fileLegal SexFemale 02/13/2023 6:46 PM EDTGender IdentityNot on fileSexual OrientationNot on file documented as of this encounter Plan of Treatment DateTypeDepartmentCare Team (Latest Contact Info)Gxlnbnfbzgk54/14/2025 12:30 PM ESTTreatment [facility] [address] [facility] [address] [place] [address] Stephania Casarez, RESEARCH INVESTIGATOR 10/19/2025 11:00 AM ESTTreatment [facility] [address] [facility] [address] [place] [address] Stephania Casarez, RESEARCH INVESTIGATOR 10/21/2025 11:00 AM ESTTreatment [facility] [address] [facility] [address] [place] [address] Stephania Casarez, RESEARCH INVESTIGATOR 11/30/2025 1:00 PM ESTOffice Visit [facility] [address] [place] [place] [address] Jocy Roger NP [address], [place] [phone] documented as of this encounter Visit Diagnoses Not on filedocumented in this encounter Additional Health Concerns AssessmentNoted TimePHQ-9 Depression Total Score: 10:00 AM EDT documented as of this encounter Care Teams Team MemberRelationshipSpecialtyStart DateEnd Date Mirian Putnam MD [address] [place], [place] [phone] PCP - GeneralFamily Medicine04/09/23documented as of this encounter
--- OUTSIDE RECORDS SUMMARY | 2025-10-14 08:43 | XMS_ITS | Encounter Summary ---
Author Organization [facility] Address [address] [place] [address] Care Team Providers Care Engineering Secretary Name Role Phone Mirian Putnam MD Primary Care Provider [phone] Encounter Details DateTypeDepartmentCare Team (Latest Contact Info)Ikhzmsdpvzb99/04/2025Travel Social History Tobacco UseTypesPacks/DayYears UsedDateSmoking Tobacco: NeverSmokeless Tobacco: NeverAlcohol UseStandard Drinks/WeekCommentsNot Currently2 (1 standard drink = 0.6 oz pure alcohol)Caffeine intake: 1-2 cups per day coffee, [id number] Health LiteracyAnswerDate RecordedHow often do you need [...] relatives?Twice a week08/13/2025How often do you attend holiness or oriental orthodox services?1 to 4 times per year08/13/2025Do you belong to any clubs or organizations such as holiness groups, unions, fraTaiho Pharmaceutical Co or athletic rick ups, or school groups?No08/13/2025How often do you attend meetings of the clubs or organizations you belong to?Patient auqrlpti45/12/2025re you , , , , never , or living with a partner? 08/13/2025UDIT-CAnswerDate RecordedQ1: How often do you have a drink containing alcohol?2-4 times a month08/13/2025Q2: How many drinks containing alcohol do you have on a typical day when you are drinking?1 or Q3: How often do you have six or more drinks on one occasion?Less than wtzkwot9408/13/2025Overall Financial Resource Strain (CARDIA)AnswerDate RecordedHow hard is it for you to pay for the very basics like food, housing, medical care, and heating?Not hard at all08/13/2025PHQ-2AnswerDate RecordedPatient Health Questionnaire-2 Score0 08/27/2025[facility] [place] of Occupational Health - Occupational Stress QuestionnaireAnswerDate [...] were you homeless or living in a prison (including now)?No08/13/2025CommentsUnknownSex and Gender InformationValueDate RecordedSex Assigned at BirthNot on fileLegal SexFemale 02/13/2023 6:46 PM EDTGender IdentityNot on fileSexual OrientationNot on file documented as of this encounter Plan of Treatment DateTypeDepartmentCare Team (Latest Contact Info)Qbfbmykohgi98/14/2025 12:30 PM ESTTreatment [facility] [address] [facility] [address] [place] [address] Stephania Casarez, RNFA 10/19/2025 11:00 AM ESTTreatment [facility] [address] [facility] [address] [place] [address] Stephania Casarez, RNFA 10/21/2025 11:00 AM ESTTreatment [facility] [address] [facility] [address] [place] [address] Stephania Casarez, RNFA 11/30/2025 1:00 PM ESTOffice Visit [facility] [address] [place] [address] Jocy Roger NP [address] [place] [place] [address] documented as of this encounter Visit Diagnoses Not on filedocumented in this encounter Additional Health Concerns AssessmentNoted TimePHQ-9 Depression Total Score: 10:00 AM EDT documented as of this encounter Care Teams Team MemberRelationshipSpecialtyStart DateEnd Date Mirian Putnam MD [address] [place] [address] PCP - GeneralFamily Medicine04/09/23documented as of this encounter
--- OUTSIDE RECORDS SUMMARY | 2025-10-14 08:43 | XMS_ITS | Clinical Summary ---
Author Organization [facility] Address [id number] [place] [address] Care Team Providers Care Finish Production Manager Name Role Phone Mirian Putnam MD Primary Care Provider [phone] Allergies Active AllergyReactionsCriticalityNoted DateCommentsPenicillinsRashHigh 11/08/2016 Medications MedicationSigDispense QuantityRefillsLast FilledStart DateEnd DateStatus buPROPion XL (WELLBUTRIN XL) 150 mg 24 hr tablet 1 tablet.05/21/2011ctive carvedilol CR (COREG CR) 40 mg 24 hr capsule Coreg CR 40 MG Oral Capsule Extended Release 24 Hour Refills: 0 ActiveActive ibuprofen (ADVIL) 200 mg tablet Take 200 mg by mouth every 6 (six) hours.Active mlrqq-1t-rfv-epa-fish oil-D3 350 mg-400 mg- 1,000 unit capsule Take by mouth.Active coenzyme Q10 30 mg capsule Take 30 mg by mouth 3 (three) times a day.Active valsartan (DIOVAN) 320 mg tablet Take 320 mg by mouth daily.04/23/2020Active atorvastatin (LIPITOR) 10 mg tablet Take 10 mg by mouth daily.07/03/2020Active Active Problems ProblemNoted DateDiagnosed Dateobgyn qnwfovcrpg00/18/2016 Overview (07/29/2020): Date of review: 11/18/2016 Results: PAP normal, repeat in 3 years Date of review: 09/28/2018 Results: Mammogram normal, repeat in 1 year Date of review: 07/29/2020 Results: PAP normal, repeat in 3 years Displacement of lumbar intervertebral disc without jsezkdbxnh71/20/2014 Radiculitis, kijprsgfycf49/20/2014 Family History Medical HistoryRelationNameCommentsDiabetesFatherHypertensionFatherThyroid IssuesFatherHypertensionMotherBreast cancerNeg HxRelationNameStatusComments FatherAliveMotherAlive Social History Tobacco UseTypesPacks/DayYears UsedDateSmoking Tobacco: NeverSmokeless Tobacco: NeverAlcohol UseStandard Drinks/WeekCommentsYes0 (1 standard drink = 0.6 oz pure alcohol)ChildcareAnswerDate CsmmkezlEsgtlupaxOedpbsp52/12/2019EmploymentAnswer Date NhxtptapDbdramjgpxQvrosgx67/12/2019Purpose - LifeAnswerDate RecordedPurpose and direction in ppmhMwhfsby90/11/2021CommentsNoSex and Gender InformationValueDate RecordedSex Assigned at BirthNot on fileLegal SexFemale 07/07/2015 11:55 AM EDTGender IdentityNot on fileSexual OrientationNot on file Last Filed Vital Signs Vital SignReadingTime TakenCommentsBlood Inhosneg910/8208 10:01 AM EDT Wkpui758405/15/2018 1:00 PM EDTTemperature--Respiratory Rate--Oxygen Saturation-- Inhaled Oxygen Concentration--Tmynax78.3 kg (199 lb)07/25/2020 10:01 AM EDT Eymiyk018.1 cm (5' 5 )07/25/2020 10:01 AM EDTBody Mass Index33.1208 10:01 AM EDT Plan of Treatment Health MaintenanceDue DateLast DoneCommentsDepression Kcrapdtcj26/05/1972Tobacco Rjvicpjqt90/05/1972Adult BMI Bxechhobe16/05/1978DTaP,Tdap and Td Vaccines (1 - Tdap)1979Zoster (Shingles) Vaccine (1 of 2)2010Fall Risk Screening 2025Influenza Rnjchrb6208/02/2025RSV ( or age 60+ yrs) (1 - 1-dose 75+ series)2035Pap ItjfsIytekvwpzhmy66/24/2020, 07/25/2020, 11/08/2016 Medical Devices Not on file Procedures Procedure NamePriorityDate/TimeAssociated DiagnosisCommentsPAP SMEARRoutine 07/25/2020 11:53 AM EDT Encounter for gynecological examination (general) (routine) without abnormal findings from Last 3 Months or Most Recently Relevant to Health Maintenance Results * Pap Smear (07/25/2020 11:53 AM EDT)Specimen (Source)Anatomical Location / LateralityCollection Method / VolumeCollection TimeReceived Time07/25/2020 11:53 AM EDT07/25/2020 11:54 AM EDT Narrative COPATH - 07/29/2020 9:10 AM EDT [facility] ? [address] [place] [address] ? [place] [address] ? Gynecologic Cytology Consultation ? Patient Name: LESLYE GIMENEZ : 1960 (Age: 60) Gender: F Taken: 07/25/2020 Reported: 07/29/2020 Physician(s): Jagjit Triana DO ([phone]) Copy To: ?? [facility]. Rec. #: [id number] Acct: # [id number] Final Cytologic Interpretation ThinPrep Pap Test (Vaginal/Cervical): Satisfactory for evaluation. NEGATIVE FOR INTRAEPITHELIAL LESION OR MALIGNANCY. The cytologic changes of atrophy are noted. ?? jja/07/29/2020 Interpretation performed at [facility] [address] [place] [address], License number: [id number]. Electronically Signed Out By ?MAICOL Rhoades(ASCP) Date of Last Menstrual Period: ? (None Given) Other Clinical Conditions: Z01.419 Personal Care Worker exam wo/abn findings Menopausal Source of Specimen ??ThinPrep Pap Test (Vaginal/Cervical) ? Thin Prep Pap (AUTOMATIC DOOR MECHANIC) Fee Code(s): ?? G0145 The Pap test is a screening test with an inherent, but low, probability of error. The Pap test is primarily effective for the diagnosis and prevention of squamous cell carcinoma. Regular screening iscritical for prevention. ThinPrep liquid-based slides, which meet the Tv Technician criteria for automated screening, have been screened by the ThinPrep Imaging System (as of 08/18/07) along with an additional manual rescreening by a principal statistical scientist and, if indicated, by a pathologist. Authorizing ProviderResult TypeResult StatusTerry M Triana DOPATHOLOGY/CYTOLOGY ORDERABLESFinal ResultPerforming OrganizationAddressCity/State/ZIP CodePhone Number COPATH from Last 3 Months or Most Recently Relevant to Health Maintenance Insurance * Guarantor: Leslye Gimenez BAc TypeRelation to PatientDate of PhoneBilling AddressPersonal/YgnkubShcu1960 [phone] [employer] (Work) [address] [place] [address] Care Teams Team MemberRelationshipSpecialtyStart DateEnd Date Mirian Putnam MD [address] [place] [address] PCP - GeneralFamily Nmfwspuc18/23/18
--- OUTSIDE RECORDS SUMMARY | 2025-10-14 08:43 | XMS_ITS | Clinical Summary ---
Author Organization [facility] Address [facility] [place] [address] Care Team Providers Care International Logistics Analyst Name Role Phone Mirian Putnam MD Primary Care Provider [phone] Allergies Active AllergyReactionsCriticalityNoted DateCommentsPenicillinsRashHigh 08/07/2014 Medications MedicationSigDispense QuantityRefillsLast FilledStart DateEnd DateStatus carvedilol (COREG CR) 40 mg 24 hr capsule Take 40 mg by mouth once daily.Active Valsartan-Hydrochlorothiazide 320-12.5 mg per tablet Take 1 tablet by mouth once daily.Active buPROPion SR (BUPROBAN) 150 mg 12 hr tablet Take 150 mg by mouth twice daily.Active gabapentin (NEURONTIN) 600 mg tablet Take 1 tablet by mouth daily at bedtime. 60 tablet ctive HYDROcodone-acetaminophen (NORCO) 5-325 mg per tablet Take 1 tablet by mouth every 6 hours as needed. 60 tablet ctive CALCIUM CARBONATE/VITAMIN D3 (CALCIUM + D ORAL) Take by mouth once daily.Active OMEGA-3S/DHA/EPA/FISH OIL (OMEGA 3 ORAL) Take by mouth once daily.Active ibuprofen (ADVIL) 200 mg tablet Take 200 mg by mouth every 6 hours as needed.Active Active Problems ProblemNoted DateDiagnosed DateRadiculitis, wbplaezcofg56/20/2014Displacement of lumbar intervertebral disc without uffbqsqkza74/20/2014 Family History Medical HistoryRelationCommentsDiabetesFatherhigh blood pressure [Other]Father high blood pressure [Other]MotherRelationStatusCommentsFatherMother Social History Tobacco UseTypesPacks/DayYears UsedDateSmoking Tobacco: NeverSmokeless Tobacco: NeverAlcohol UseStandard Drinks/WeekCommentsYes0 (1 standard drink = 0.6 oz pure alcohol)socialCommentsNoSex and Gender InformationValueDate RecordedSex Assigned at BirthNot on fileLegal NyiVuwwpi02/06/2014 5:07 PM EDTGender IdentityNot on fileSexual OrientationNot on file Last Filed Vital Signs Vital SignReadingTime TakenCommentsBlood Hxikutvw766/6010/12/2014 9:39 AM EST Mwwty077910/12/2014 9:39 AM ESTTemperature--Respiratory Lufv615608/07/2014 6:28 PM EDTOxygen Kkqzjuucff81%08/07/2014 6:28 PM EDTInhaled Oxygen Concentration-- Iihmuq04.3 kg (188 lb)10/12/2014 9:39 AM YYYHxcsqu691.6 cm (5' 4 )10/12/2014 9:39 AM ESTBody Mass Index32.27112/12/2013 9:39 AM EST Plan of Treatment Health MaintenanceDue DateLast DoneCommentsAnxiety Txambxhvi26/05/1978Depression Lxmaifjjs09/05/1978HIV Vzldfqnhl45/05/1978Hepatitis C Okrcdvptd31/05/1978 DTaP,Tdap,Td Vaccine (1 - Tdap)1979Mammogram Iujeizuhx48/05/2000CT Ijztjkyhmkag33/05/2005Cologuard (FIT-DNA)06/05/20054046Rxvtaxjdhsw31/05/2005 Colorectal Cancer Ummreoaex78/05/2005Diabetes Yruqgminf48/05/2005Fecal Occult Blood2005Lipid Wtrszwulo47/05/6495Vjxdzkgwmqvmp46/05/2005Pneumococcal Vaccine: 50+ (1 of 1 - PCV)2010Shingrix Vaccine (1 of 2)2010dvance Directive Lpoirzhclr82/05/2025Bone Density Uayxvgmpq15/05/2025ovid-19 Vaccine (1 - 2024- season)2025Influenza Vaccine (#1)2025RSV Vaccine (1 - 1-dose 75+ series)2035 Insurance Care Teams Team MemberRelationshipSpecialtyStart DateEnd Date Mirian Putnam MD [address] [place] [address] PCP - GeneralFamily Medicine08/12/14
--- OUTSIDE RECORDS SUMMARY | 2025-10-14 08:43 | XMS_ITS | Encounter Summary ---
Author Organization [facility] Address [address] [place] [address] Care Team Providers Care Energy Trading Analyst Name Role Phone Mirian Putnam MD Primary Care Provider [phone] Encounter Details DateTypeDepartmentCare Team (Latest Contact Info)Tmyojahkptx72/06/2025Bamboo flowsheet [facility] [address] [place] [id number] Stephania Casarez PTA Social History Tobacco UseTypesPacks/DayYears UsedDateSmoking Tobacco: NeverSmokeless Tobacco: NeverAlcohol UseStandard Drinks/WeekCommentsNot Currently2 (1 standard drink = 0.6 oz pure alcohol)Caffeine intake: 1-2 cups per day coffee, [id number] Health LiteracyAnswerDate RecordedHow often do you need [...] relatives?Twice a week08/13/2025How often do you attend evangelical or baptist services?1 to 4 times per year08/13/2025Do you belong to any clubs or organizations such as evangelical groups, unions, [employer] or athletic rick ups, or school groups?No08/13/2025How [...] or more drinks on one occasion?Less than zrirdjk6808/13/2025Overall Financial Resource Strain (CARDIA)AnswerDate RecordedHow hard is it for you to pay for the very basics like food, housing, medical care, and heating?Not hard at all08/13/2025PHQ-2AnswerDate RecordedPatient Health Questionnaire-2 Score0 08/27/2025[facility] [place] [facility] - Occupational Stress QuestionnaireAnswerDate [...] were you homeless or living in a usp (including now)?No08/13/2025CommentsUnknownSex and Gender InformationValueDate RecordedSex Assigned at BirthNot on fileLegal SexFemale 02/13/2023 6:46 PM EDTGender IdentityNot on fileSexual OrientationNot on file documented as of this encounter Plan of Treatment DateTypeDepartmentCare Team (Latest Contact Info)Fvfirhigltp98/14/2025 12:30 PM ESTTreatment [facility] [address] [facility] [address] [place] [address] Stephania Casarez, VALVE MACHINE OPERATOR 10/19/2025 11:00 AM ESTTreatment [facility] [address] [facility] [address] [place] [address] Stephania Casarez, VALVE MACHINE OPERATOR 10/21/2025 11:00 AM ESTTreatment [facility] [address] [facility] [address] [place] [address] Stephania Casarez, VALVE MACHINE OPERATOR 11/30/2025 1:00 PM ESTOffice Visit [facility] [address] [place] [facility] [place] [address] Jocy Roger NP [address] [place], [place] [phone] documented as of this encounter Visit Diagnoses Not on filedocumented in this encounter Additional Health Concerns AssessmentNoted TimePHQ-9 Depression Total Score: 10:00 AM EDT documented as of this encounter Care Teams Team MemberRelationshipSpecialtyStart DateEnd Date Mirian Putnam MD [address] [place], [place] [id number] PCP - GeneralFamily Medicine04/09/23documented as of this encounter
--- OUTSIDE RECORDS SUMMARY | 2025-10-14 08:43 | XMS_ITS | Encounter Summary ---
Author Organization [facility] Address [address] [place] [address] Care Team Providers Care Electrical And Instrumentation Manager Name Role Phone Mirian Putnam MD Primary Care Provider [phone] Encounter Details DateTypeDepartmentCare Team (Latest Contact Info)Orzkgmpondg56/06/2025Travel Social History Tobacco UseTypesPacks/DayYears UsedDateSmoking Tobacco: NeverSmokeless Tobacco: NeverAlcohol UseStandard Drinks/WeekCommentsNot Currently2 (1 standard drink = 0.6 oz pure alcohol)Caffeine intake: 1-2 cups per day coffee, [id number] Health LiteracyAnswerDate RecordedHow often do you need [...] relatives?Twice a week08/13/2025How often do you attend zoroastrianism or congregation services?1 to 4 times per year08/13/2025Do you belong to any clubs or organizations such as zoroastrianism groups, unions, [employer] or athletic rick ups, or school groups?No08/13/2025How often do you attend meetings of the clubs or organizations you belong to?Patient uxipjgqw89/12/2025re you , , , , never , or living with a partner? 08/13/2025UDIT-CAnswerDate RecordedQ1: How often do you have a drink containing alcohol?2-4 times a month08/13/2025Q2: How many drinks containing alcohol do you have on a typical day when you are drinking?1 or Q3: How often do you have six or more drinks on one occasion?Less than xfnebad1608/13/2025Overall Financial Resource Strain (CARDIA)AnswerDate RecordedHow hard is it for you to pay for the very basics like food, housing, medical care, and heating?Not hard at all08/13/2025PHQ-2AnswerDate RecordedPatient Health Questionnaire-2 Score0 08/27/2025[facility] [place] [facility] - Occupational Stress QuestionnaireAnswerDate [...] were you homeless or living in a group home (including now)?No08/13/2025CommentsUnknownSex and Gender InformationValueDate RecordedSex Assigned at BirthNot on fileLegal SexFemale 02/13/2023 6:46 PM EDTGender IdentityNot on fileSexual OrientationNot on file documented as of this encounter Plan of Treatment DateTypeDepartmentCare Team (Latest Contact Info)Folbauhhbyf93/14/2025 12:30 PM ESTTreatment [facility] [address] [facility] [address] [place] [address] Stephania Casarez, LEARNING AND DEVELOPMENT DIRECTOR 10/19/2025 11:00 AM ESTTreatment [facility] [address] [facility] [address] [place] [address] Stephania Casarez, LEARNING AND DEVELOPMENT DIRECTOR 10/21/2025 11:00 AM ESTTreatment [facility] [address] [facility] [address] [place] [address] Stephania Casarez, LEARNING AND DEVELOPMENT DIRECTOR 11/30/2025 1:00 PM ESTOffice Visit [facility] [address] [facility] [place] [phone] Jocy Roger NP [address] [place] [address] documented as of this encounter Visit Diagnoses Not on filedocumented in this encounter Additional Health Concerns AssessmentNoted TimePHQ-9 Depression Total Score: 10:00 AM EDT documented as of this encounter Care Teams Team MemberRelationshipSpecialtyStart DateEnd Date Mirian Putnam MD [address] [place] [address] PCP - GeneralFamily Medicine04/09/23documented as of this encounter
--- OUTSIDE RECORDS SUMMARY | 2025-10-14 08:43 | XMS_ITS | Clinical Summary ---
Author Organization [facility] Address [address] [place] [address] Phone Care Team Providers Care Hand Screen Printer Name Role Phone Mirian Putnam MD Primary Care Provider [phone] Karina Benitez MD Unavailable Allergies Active AllergyReactionsCriticalityNoted DateCommentsPenicillin GUnknown 08/24/20256648FojgprkahxlCkszSsjr07/06/2014 Medications MedicationSigDispense QuantityRefillsLast FilledStart DateEnd DateStatus buPROPion XL (Wellbutrin XL) 150 mg 24 hr tablet Take 1 tablet (150 mg) by mouth once daily in the morning.05/21/2011ctive carvedilol CR (Coreg CR) 40 mg 24 hr capsule Take 1 capsule (40 mg) by mouth once daily.08/28/2019Active valsartan (Diovan) 320 mg tablet Take 1 tablet (320 mg) by mouth once daily.Active esomeprazole (NexIUM) [address] capsule Take 1 capsule (20 mg) by mouth once daily.08/28/2019Active coQ10, ubiquinol, 100 mg capsule Take 1 capsule (100 mg) by mouth once daily.08/28/2019Active B6/folic/B12/coffee/phosphatid (NEURIVA PLUS BRAIN PERFORMANCE ORAL) Take by mouth.Active Rybelsus 3 mg tablet TAKE 1 TABLET (3 MG) BY MOUTH IN THE MORNING. TAKE BEFORE MEALS.02/18/2025tive Active Problems ProblemNoted DateDiagnosed DatePrimary iddthctpfcxs32/21/2024Gastroesophageal reflux disease without wfnifmarzdc65/21/2698Ygzqnjxtearijbrnpzx14/28/2024 Encounters DateTypeDepartmentCare DqboWnjtialtowo00/23/2025 2:00 PM EDTOffice Visit [facility] [place] [address] [place] [address] Karina Benitez MD Hyperparathyroidism (Multi) (Primary Dx); Vitamin D deficiency Discharge Disposition: Home08/24/2025Orders Only [facility] [address] [place] [address] Karina Benitez MD 08/24/2025Travelfrom Last 3 Months Family History Medical HistoryRelationNameCommentsDiabetesFatherHeart failureFatherUterine cancerMotherThyroid diseasePaternal GrandmotherRelationNameStatusCommentsFather MotherPaternal Grandmother Social History Tobacco UseTypesPacks/DayYears UsedDateSmoking Tobacco: NeverPassive Smoke Exposure: PastSmokeless Tobacco: Never Tobacco Cessation:Counseling Given: Not Answered Alcohol UseStandard Drinks/WeekCommentsYes0 (1 standard drink = 0.6 oz pure alcohol)socialPHQ-2AnswerDate RecordedPatient Health Questionnaire-2 Score0 08/24/2025CommentsNoSex and Gender InformationValueDate RecordedSex Assigned at SpcskMclnpa69/26/2023 5:57 PM EDTLegal JexDwvceg45/26/2022 1:53 PM ESTGender XfvceahkYmfkga09/26/2023 5:57 PM EDTSexual OrientationNot on file Last Filed Vital Signs Vital SignReadingTime TakenCommentsBlood Ydwcyygr944/8509 1:52 PM EDT Pyrou014808/24/2025 1:52 PM AHQZeijllxdmei46 ??C (96.8 ??F)09/21/2024 3:05 PM EDT Respiratory Cdtc2409 3:05 PM EDTOxygen Blmshhixld87%09/21/2024 3:05 PM EDTInhaled Oxygen Concentration--Yvwdjl20.7 kg (178 lb)08/24/2025 1:52 PM EDT Hndubv493.6 cm (5' 4 )08/24/2025 1:52 PM EDTBody Mass Index30.55008/24/2025 1:52 PM EDT Plan of Treatment Health MaintenanceDue DateLast DoneCommentsCT Sdqklzmsxosz1960Colonoscopy 1960FIT1960 7001Zzwdbdtbrfsjk1960Welcome to Medicare Visit 1960MMR Vaccines (1 of 1 - Standard series)1961Hepatitis C Screening 1978Hepatitis A Vaccines (1 of 2 - Risk 2-dose series)1979Cervical Cancer Wsmhfxdbg59/05/1981HPV/Wbhwqn9506/05/1981Pap Smear1981DTaP/Tdap/Td Vaccines (1 - Tdap)1982Pneumococcal Vaccine (1 of 1 - PCV)2010RSV High Risk: (Elderly (60+) or Population) (1 - Risk 50-74 years 1-dose series)2010Zoster Vaccines (1 of 2)2010Hepatitis B Vaccines (1 of 3 - Risk 3-dose series)2020Influenza Vaccine (#1)5COVID-19 Vaccine ( - season)2025Diabetes Plzjuvtrw99, 09/21/2024, 09/08/2024, Additional history existsBone Density Scan01/14/2026 01/14/2024, 01/14/20243653Hjutlwadm12/10/202604/09/2025, 03/11/2025, 09/11/2023, Additional history existsColorectal Cancer Zsraqlylt34/27/2026FIT-DNA (Cologuard)/Lipid Panel/, 10/12/2024HIB VaccinesAged OutNo longer eligible based on patient's age to complete this topic HPV VaccinesAged OutNo longer eligible based on patient's age to complete this topicIPV VaccinesAged OutNo longer eligible based on patient's age to complete this topicMeningococcal VaccineAged OutNo longer eligible based on patient's age to complete this topicRotavirus VaccinesAged OutNo longer eligible based on patient's age to complete this topic Procedures Procedure NamePriorityDate/TimeAssociated DiagnosisCommentsVITAMIN D 25-HYDROXY,ZMCPWHfvvyon60/23/2025 2:57 PM EDT RENAL FUNCTION CANFXYbuwqoi61/23/2025 2:57 PM EDT [facility], INTACT AND BMSYJKWDbmvdvq98/23/2025 2:57 PM EDT RENAL FUNCTION ZYTWVVupyouw44/12/2024 1:06 PM EST Hyperparathyroidism (Multi) from Last 3 Months or Most Recently Relevant to Health Maintenance Results * [facility], INTACT AND CALCIUM (08/24/2025 2:57 PM EDT)ComponentValueRef Range Test MethodAnalysis TimePerformed AtPathologist SignaturePARATHYROID HORMONE, [id number] - 77 pg/mLQuest Thomas[facility]renn Trinity HealthComment: Interpretive Guide ?Intact PTH ? Calcium ? ------- Normal Parathyroid ?Normal ? Normal Hypoparathyroidism ?Low or Low Normal ?Low Hyperparathyroidism ?? Primary ?Normal or High ? High ?? Secondary ?High ? Normal or Low ?? Tertiary ? High ? High Non-Parathyroid ?? Hypercalcemia ?Low or Low Normal ?High CALCIUM9.28.6 - 10.4 mg/dLMisohoni Trinity HealthSpecimen (Source)Anatomical Location / LateralityCollection Method / VolumeCollection TimeReceived Time08/24/2025 2:57 PM EDT08/24/2025 2:57 PM EDT [facility] - 08/25/2025 11:33 AM EDT AN UPDATE OR CORRECTION HAS BEEN MADE TO NAME Authorizing ProviderResult TypeResult StatusKarina Benitez MDMER[facility] BLOOD ORDERABLES Final ResultPerforming OrganizationAddressCity/State/ZIP CodePhone Number [facility] [address] [facility], [address] [place] [address] * Vitamin D 25-Hydroxy,Total (for eval of Vitamin D levels) (08/24/2025 2:57 PM EDT)ComponentValueRef RangeTest MethodAnalysis TimePerformed AtPathologist SignatureVITAMIN D,25-OH,TOTAL,WI8037 - 100 ng/mLMisohoni Trinity HealthComment: Vitamin D Status ? 25-OH Vitamin D: Deficiency: <20 ng/mL Insufficiency: ? 20 - 29 ng/mL Optimal: > or = 30 ng/mL For 25-OH Vitamin D testing on patients on D2-supplementation and patients for whom quantitation of D2 and D3 fractions is required, the QuestAssureD() 25-OH VIT D, (D2,D3), LC/MS/MS is recommended: order code 37539 (patients >2yrs). See Note 1 Note 1 For additional information, please refer to http://education.Adknowledge.c4cast.com/faq/NOG309 (This link is being provided for informational/ educational purposes only.) Specimen (Source)Anatomical Location / LateralityCollection Method / Volume Collection TimeReceived Time08/24/2025 2:57 PM EDT08/24/2025 2:57 PM EDT [facility] - 08/25/2025 11:33 AM EDT AN UPDATE OR CORRECTION HAS BEEN MADE TO NAME Authorizing ProviderResult TypeResult StatusKarina LEDBETTER BLOOD ORDERABLES Final ResultPerforming OrganizationAddressCity/State/ZIP CodePhone Number [facility] [address], [address] [place] [address] * (ABNORMAL) Renal Function Panel (08/24/2025 2:57 PM EDT) Only the most recent of2 resultswithin the time period is included. ComponentValueRef RangeTest MethodAnalysis TimePerformed AtPathologist Signature OFQYFOJ569(H)65 - 99 mg/dLQuest Diagnostics Trinity HealthComment: ? Fasting reference interval For someone without known diabetes, a glucose value >125 mg/dL indicates that they may have diabetes and this should be confirmed with a follow-up test. UREA NITROGEN (BUN)197 - 25 mg/dLQuest [facility] CREATININE0.830.50 - 1.05 mg/dLQuest Diagnostics Trinity HealthEGFR 78> OR = 60 mL/min/1.10v9Fbliq [facility] BUN/CREATININE RATIOSEE NOTE: (calc)[facility] HealthCompine rest christ[facility] services: ?? Not Reported: BUN and Creatinine are within ?? reference range. ? [id number] - 146 mmol/LQuest Diagnostics Trinity HealthPOTASSIUM 4.23.5 - 5.3 mmol/LQuest Diagnostics Trinity HealthCHLORIDE10698 - 110 mmol/LQuest Diagnostics Trinity HealthCARBON [id number] - 32 mmol/LQuest Diagnostics Trinity HealthCALCIUM9.28.6 - 10.4 mg/dL [facility] HealthPHOSPHATE ( PHOSPHORUS)2.72.1 - 4.3 mg/dLQuest Diagnostics Trinity HealthALBUMIN4.23.6 - 5.1 g/dL [facility] HealthSpecimen (Source)Anatomical Location / LateralityCollection Method / VolumeCollection TimeReceived Time08/24/2025 2:57 PM EDT08/24/2025 2:57 PM EDT Narrative [facility] - 08/25/2025 11:33 AM EDT AN UPDATE OR CORRECTION HAS BEEN MADE TO NAME Authorizing ProviderResult TypeResult StatusKarina LEDBETTER BLOOD ORDERABLES Final ResultPerforming OrganizationAddressCity/State/ZIP CodePhone Number [facility] [address] [facility], [address] [facility] [place] [address] from Last 3 Months or Most Recently Relevant to Health Maintenance Insurance Care Teams Team MemberRelationshipSpecialtyStart DateEnd Date Mirian Putnam MD [address] [place] [address] PCP - [facility]Fac[facility] Medicine03/05/24 [place] [address] Department [place] [address] Consulting PhysicianEndocrinology07/15/24
== END 2025-10-14 08:42 | disposition home or self-care (01) ==
LOC: RAD 08:41
PROVIDERS: Family Provider Family Medicine; Visit Provider Physician Assistant
DX: M25.511 Pain in right shoulder (principal); M25.512 Pain in left shoulder
CPT/HCPCS: 73030